=== PATIENT | female | born 1970 | race Caucasian/White ===

== ENCOUNTER 2019-11-18 18:53 | Inpatient (IN) | payer OTHER ==
[~2019-11-18] VITALS: Ht 154.9 cm; Wt 60.2 kg
[2019-11-18] MEDS ORDERED: SODIUM CHLORIDE FLUSH 10ML SYR IVF ONE (19:30)
[2019-11-18 19:37] LABS: INTERNATIONAL NORMALIZED RATIO 1.88 (0.93-1.1); PROTHROMBIN TIME 20.1 Seconds (9.6-11.5)
[2019-11-18 19:39] LABS: ALANINE AMINOTRANSFERASE 14 U/L (12-78); ALBUMIN 2.4 g/dL (3.4-5.0); ANION GAP 5 mmol/L (5-15); CALCIUM 7.9 mg/dL (8.5-10.1); CHLORIDE 99 mmol/L (98-107); MEAN CORPUSCULAR HEMOGLOBIN 38.1 pg (27.0-34.8); MEAN CORPUSCULAR HGB CONC 33.5 g/dL (32.4-35.8); MEAN PLATELET VOLUME 6.1 fL (7.4-10.4); PLATELET COUNT 209 x10^3/uL (130-400); RED BLOOD COUNT 1.82 x10^6/uL (3.82-5.3); RED CELL DISTRIBUTION WIDTH 18.4 % (9.6-15.2)
[2019-11-18 19:40] LABS: HEMOGRAM NOTE RECHECKED
[2019-11-18 19:41] LABS: ALKALINE PHOSPHATASE 74 U/L (45-117); BILIRUBIN,TOTAL 5.1 mg/dL (0.2-1.0)
[2019-11-18 19:45] LABS: SALICYLATE LEVEL < 1.7 mg/dL (2.8-20.0)
[2019-11-18] MEDS ORDERED: SODIUM CHLORIDE 0.9% 1,000ML IVBOLUS ONE ×2 (20:00→20:30)
[2019-11-18 20:02] LABS: MD MORPH REVIEW ONLY
[2019-11-18 20:03] LABS: ANISOCYTOSIS 1+; BASOPHILS # (AUTO) 0.01 x10^3/uL (0-0.1); BASOPHILS % (AUTO) 0 % (0-1); EOSINOPHILS # (AUTO) 0.11 x10^3/uL (0-0.4); EOSINOPHILS % (AUTO) 2 % (1-7); LYMPHOCYTES # (AUTO) 1.11 x10^3/uL (1-3.4); LYMPHOCYTES % (AUTO) 19 % (22-44); MONOCYTES # (AUTO) 0.54 x10^3/uL (0.2-0.8); MONOCYTES % (AUTO) 9 % (2-9); NEUTROPHILS # (AUTO) 4.07 x10^3/uL (1.8-6.8); NEUTROPHILS % (AUTO) 70 % (42-75)
[2019-11-18 20:05] LABS: ACANTHOCYTES 1+; POLYCHROMASIA 1+
[2019-11-18 20:06] LABS: <PLATELET ESTIMATE> ADEQUATE; <PLT MORPHOLOGY> NORMAL PLT MORPH; ECHINOCYTES 1+
[2019-11-18] MEDS ORDERED: PANTOPRAZOLE 80 MG in SODIUM CHLORIDE 0.9% 100 ML IV SCH (20:06)
[2019-11-18] MEDS ORDERED: PANTOPRAZOLE 80 MG in SODIUM CHLORIDE 0.9% 50 ML IVPB ONE (20:06)
[2019-11-18] MEDS ORDERED: SODIUM CHLORIDE FLUSH 10ML SYR IVF PRN (20:30)
[2019-11-18] MEDS ORDERED: OCTREOTIDE 100MCG/ML, 1ML (0.1MG/ML) ONE (20:47)
[2019-11-18] MEDS ORDERED: OCTREOTIDE 500 MCG in SODIUM CHLORIDE 0.9% 99 ML IV PRN (21:00)
[2019-11-18] MEDS ORDERED: PLEASE ENTER ALLERGIES MC SCH (21:00)
--- NOTE | 2019-11-18 21:15 | NUR ---
Report received and care assumed. Dr De Oliveira at bedside for eval. 2 IV's established. Per MD, no central line at this time. Would like to see what pt's VS are after blood transfusion. Pt states her BP is normally "low". Pt denies symptoms or needs at this time.
[2019-11-18] MEDS ORDERED: AZITHROMYCIN 500 MG in SODIUM CHLORIDE 0.9% 250 ML IVPB ONE (21:30)
[2019-11-18] MEDS ORDERED: CEFTRIAXONE PMX 1GM/50ML 50 ML IVPB ONE (21:30)
[2019-11-18] MEDS ORDERED: POTASSIUM CHLORIDE 20 MEQ, MAGNESIUM SULFATE 2 GM, THIAMINE 200 MG, MVI ADULT 10 ML, FO... IV SCH (21:34)
[2019-11-18 21:40] VITALS: BP 93/56
--- NOTE | 2019-11-18 21:40 | NUR ---
1 unit PRBC transfusing. Pt aware of s/s to notify RN. Pt on monitor equipment. Call light in reach.
[2019-11-18 21:54] VITALS: BP 97/64
--- NOTE | 2019-11-18 21:57 | NUR ---
PT HAS NO S/S OF REACTION. TOLERATING TRANSFUSION AT THIS TIME.
[2019-11-18] MEDS ORDERED: POTASSIUM CHLORIDE 20 MEQ TAB.ER.PRT PO ONE (22:00)
[2019-11-18] MEDS: CEFTRIAXONE PMX 1GM/50ML 50 ML IV SCH (22:00)
[2019-11-18] MEDS ORDERED: ONDANSETRON 2MG/ML, 2ML IVPush PRN (22:00)
[2019-11-18] MEDS ORDERED: MELATONIN 5 MG TABLET PO PRN (22:00)
[2019-11-18] MEDS: LACTULOSE 10 GM/15 ML UDC PO SCH (22:00)
[2019-11-18] MEDS ORDERED: methylPREDNISolone SOD SUCC 40 MG/ML IV SCH (22:00)
--- NOTE | 2019-11-18 22:11 | NUR ---
GI at bedside to eval for admission.
[2019-11-18 22:27] VITALS: BP 96/63
[2019-11-18] MEDS: PANTOPRAZOLE 80 MG in SODIUM CHLORIDE 0.9% 100 ML IV SCH (22:28)
--- NOTE | 2019-11-18 22:33 | NUR ---
PT TOLERATING BLOOD TRANSFUSION WELL. PO WATER GIVEN PER REQUEST--PT NOT NPO UNTIL MIDNIGHT. MINI CATH COLLECTED AND PT TOLERATED WELL. VSS. AWARE OF PT'S BP DURING BLOOD TRANSFUSION, STABLE AT THIS TIME. NO CENTRAL LINE REQUIRED AT THIS TIME.
[2019-11-18] MEDS ORDERED: POTASSIUM CHLORIDE 20 MEQ TAB.ER.PRT ONE (22:36)
[2019-11-18] MEDS ORDERED: CEFTRIAXONE PMX 1GM/50ML 50 ML ONE (22:36)
[2019-11-18 22:46] LABS: MICROSCOPIC NOT IND
[2019-11-18 22:59] VITALS: BP 92/58
--- NOTE | 2019-11-18 23:20 | NUR ---
Transfusion completed. IV antibiotics infusing--blood cultures x2 drawn prior. IV protonix and octreotide infusing via pump.
[2019-11-19 01:38] LABS: AMPHETAMINE SCREEN, URINE Negative (Negative); BARBITURATE SCREEN, URINE Negative (Negative); BENZODIAZEPINE SCREEN, URINE Negative (Negative); CANNABINOID SCREEN, URINE Positive (Negative); COCAINE SCREEN, URINE Negative (Negative); METHADONE SCREEN, URINE Negative (Negative); OPIATE SCREEN, URINE Negative (Negative)
[2019-11-19] MEDS: OCTREOTIDE 500 MCG in SODIUM CHLORIDE 0.9% 99 ML IV SCH ×2 (04:04→18:07)
[2019-11-19] MEDS: PANTOPRAZOLE 80 MG in SODIUM CHLORIDE 0.9% 100 ML IV SCH ×3 (04:04→22:26)
[2019-11-19 04:13] VITALS: BP 80/50
[2019-11-19 06:35] LABS: MEAN CORPUSCULAR HEMOGLOBIN 37.2 pg (27.0-34.8); MEAN CORPUSCULAR HGB CONC 33.6 g/dL (32.4-35.8); MEAN PLATELET VOLUME 6.1 fL (7.4-10.4); PLATELET COUNT 183 x10^3/uL (130-400); RED BLOOD COUNT 2.43 x10^6/uL (3.82-5.3); RED CELL DISTRIBUTION WIDTH 22.5 % (9.6-15.2)
[2019-11-19 06:38] LABS: CHLORIDE 103 mmol/L (98-107)
[2019-11-19 06:52] LABS: ALANINE AMINOTRANSFERASE 13 U/L (12-78); ALBUMIN 2.1 g/dL (3.4-5.0); ALKALINE PHOSPHATASE 69 U/L (45-117); ANION GAP 8 mmol/L (5-15); BILIRUBIN,TOTAL 6.3 mg/dL (0.2-1.0); CALCIUM 7.9 mg/dL (8.5-10.1); CREATININE 0.85 mg/dL (0.55-1.02); TOTAL PROTEIN 5.8 g/dL (6.4-8.2)
[2019-11-19 07:04] LABS: BASOPHILS # (AUTO) 0.02 x10^3/uL (0-0.1); BASOPHILS % (AUTO) 0 % (0-1); EOSINOPHILS # (AUTO) 0.17 x10^3/uL (0-0.4); EOSINOPHILS % (AUTO) 2 % (1-7); LYMPHOCYTES # (AUTO) 0.76 x10^3/uL (1-3.4); LYMPHOCYTES % (AUTO) 9 % (22-44); MD SCAN; MONOCYTES # (AUTO) 0.61 x10^3/uL (0.2-0.8); MONOCYTES % (AUTO) 7 % (2-9); NEUTROPHILS # (AUTO) 6.69 x10^3/uL (1.8-6.8); NEUTROPHILS % (AUTO) 81 % (42-75)
[2019-11-19] MEDS ORDERED: PANTOPRAZOLE 40 MG IV IVPush SCH (09:00)
[2019-11-19] MEDS: METRONIDAZOLE PMX 500MG/100ML 100 ML IV SCH ×3 (09:10→23:26)
[2019-11-19] MEDS: LACTULOSE 10 GM/15 ML UDC PO SCH ×2 (09:10→21:58)
[2019-11-19] MEDS ORDERED: KETAMINE 10 MG/ML, 20ML ONE (13:00)
[2019-11-19] MEDS ORDERED: PROPOFOL 50 ML ONE (13:33)
[2019-11-19] MEDS ORDERED: LIDOCAINE-MPF 2% ,5ML ONE (13:48)
[2019-11-19] MEDS ORDERED: ALBUMIN HUMAN 25% 100 ML IV ONE (15:30)
[2019-11-19] MEDS ORDERED: OXYcodone IR 5MG TABLET PO PRN (15:30)
[2019-11-19] MEDS: POTASSIUM CHLORIDE 20 MEQ TAB.ER.PRT PO SCH (16:06)
[2019-11-19] MEDS ORDERED: FUROSEMIDE 20 MG/2 ML ONE (17:09)
[2019-11-19] MEDS: CEFTRIAXONE PMX 1GM/50ML 50 ML IV SCH (21:59)
[2019-11-19] MEDS: THIAMINE 100 MG in SODIUM CHLORIDE 0.9% 50 ML IV SCH (22:45)
[2019-11-20] MEDS: POTASSIUM CHLORIDE 20 MEQ TAB.ER.PRT PO SCH ×2 (03:42→15:18)
[2019-11-20 04:29] LABS: MEAN CORPUSCULAR HEMOGLOBIN 36.6 pg (27.0-34.8); MEAN CORPUSCULAR HGB CONC 32.6 g/dL (32.4-35.8); MEAN PLATELET VOLUME 5.9 fL (7.4-10.4); PLATELET COUNT 208 x10^3/uL (130-400); RED CELL DISTRIBUTION WIDTH 22.7 % (9.6-15.2)
[2019-11-20 04:34] LABS: ALANINE AMINOTRANSFERASE 17 U/L (12-78); ALBUMIN 2.6 g/dL (3.4-5.0); ANION GAP 6 mmol/L (5-15); CALCIUM 8.1 mg/dL (8.5-10.1); CHLORIDE 106 mmol/L (98-107); CREATININE 0.84 mg/dL (0.55-1.02)
[2019-11-20 04:40] LABS: MICROSCOPIC INDICATED
[2019-11-20 04:44] LABS: ALKALINE PHOSPHATASE 70 U/L (45-117); BILIRUBIN,TOTAL 4.6 mg/dL (0.2-1.0); TOTAL PROTEIN 6.2 g/dL (6.4-8.2)
[2019-11-20 04:49] LABS: BASOPHILS # (AUTO) 0.02 x10^3/uL (0-0.1); BASOPHILS % (AUTO) 0 % (0-1); EOSINOPHILS # (AUTO) 0.26 x10^3/uL (0-0.4); EOSINOPHILS % (AUTO) 4 % (1-7); LYMPHOCYTES # (AUTO) 0.81 x10^3/uL (1-3.4); LYMPHOCYTES % (AUTO) 14 % (22-44); MD SCAN; MONOCYTES # (AUTO) 0.44 x10^3/uL (0.2-0.8); MONOCYTES % (AUTO) 7 % (2-9); NEUTROPHILS # (AUTO) 4.41 x10^3/uL (1.8-6.8); NEUTROPHILS % (AUTO) 74 % (42-75)
[2019-11-20] MEDS: OCTREOTIDE 500 MCG in SODIUM CHLORIDE 0.9% 99 ML IV SCH (05:31)
[2019-11-20] MEDS: METRONIDAZOLE PMX 500MG/100ML 100 ML IV SCH ×3 (07:43→22:57)
[2019-11-20] MEDS: PANTOPRAZOLE 80 MG in SODIUM CHLORIDE 0.9% 100 ML IV SCH (07:45)
[2019-11-20] MEDS: SPIRONOLACTONE 25 MG TABLET PO SCH (08:38)
[2019-11-20] MEDS: FOLIC ACID 1 MG TABLET PO SCH (08:38)
[2019-11-20] MEDS: FUROSEMIDE 20 MG TABLET PO SCH (08:38)
[2019-11-20] MEDS: MULTIVITAMINS/MINERALS TABLET PO SCH (08:38)
[2019-11-20] MEDS: LACTULOSE 10 GM/15 ML UDC PO SCH ×2 (08:39→21:36)
[2019-11-20] MEDS ORDERED: FUROSEMIDE 20 MG/2 ML IV SCH (09:00)
[2019-11-20] MEDS: THIAMINE 100 MG in SODIUM CHLORIDE 0.9% 50 ML IV SCH ×2 (11:27→21:36)
[2019-11-20] MEDS: PANTOPRAZOLE 40 MG IV IVPush SCH ×2 (11:30→23:02)
[2019-11-20 12:33] LABS: OCCULT BLOOD NEGATIVE (NEGATIVE)
[2019-11-20 19:01] VITALS: BP 101/63
[2019-11-20] MEDS: CEFTRIAXONE PMX 1GM/50ML 50 ML IV SCH (21:36)
[2019-11-21] MEDS: POTASSIUM CHLORIDE 20 MEQ TAB.ER.PRT PO SCH (03:21)
[2019-11-21 04:45] VITALS: BP 106/65
[2019-11-21 05:10] LABS: MEAN CORPUSCULAR HEMOGLOBIN 37.1 pg (27.0-34.8); MEAN CORPUSCULAR HGB CONC 33.3 g/dL (32.4-35.8); PLATELET COUNT 206 x10^3/uL (130-400); RED BLOOD COUNT 2.54 x10^6/uL (3.82-5.3); RED CELL DISTRIBUTION WIDTH 22.9 % (9.6-15.2)
[2019-11-21 05:12] LABS: ALANINE AMINOTRANSFERASE 19 U/L (12-78); ALBUMIN 2.6 g/dL (3.4-5.0); ANION GAP 5 mmol/L (5-15); CALCIUM 8.3 mg/dL (8.5-10.1); CHLORIDE 108 mmol/L (98-107); CREATININE 0.76 mg/dL (0.55-1.02)
[2019-11-21 05:14] LABS: ALKALINE PHOSPHATASE 79 U/L (45-117); TOTAL PROTEIN 6.2 g/dL (6.4-8.2)
[2019-11-21 06:06] LABS: BASOPHILS # (AUTO) 0.06 x10^3/uL (0-0.1); BASOPHILS % (AUTO) 1 % (0-1); EOSINOPHILS # (AUTO) 0.21 x10^3/uL (0-0.4); EOSINOPHILS % (AUTO) 4 % (1-7); LYMPHOCYTES # (AUTO) 0.83 x10^3/uL (1-3.4); LYMPHOCYTES % (AUTO) 15 % (22-44); MD SCAN; MONOCYTES # (AUTO) 0.37 x10^3/uL (0.2-0.8); MONOCYTES % (AUTO) 7 % (2-9); NEUTROPHILS # (AUTO) 4.27 x10^3/uL (1.8-6.8); NEUTROPHILS % (AUTO) 74 % (42-75)
[2019-11-21] MEDS: METRONIDAZOLE PMX 500MG/100ML 100 ML IV SCH ×2 (06:29→15:30)
[2019-11-21] MEDS: FUROSEMIDE 20 MG TABLET PO SCH (08:22)
[2019-11-21] MEDS: SPIRONOLACTONE 25 MG TABLET PO SCH (08:22)
[2019-11-21] MEDS: FOLIC ACID 1 MG TABLET PO SCH (08:22)
[2019-11-21] MEDS: MULTIVITAMINS/MINERALS TABLET PO SCH (08:22)
[2019-11-21] MEDS: LACTULOSE 10 GM/15 ML UDC PO SCH (08:22)
[2019-11-21 08:38] VITALS: BP 108/63
[2019-11-21] MEDS: THIAMINE 100 MG in SODIUM CHLORIDE 0.9% 50 ML IV SCH (09:32)
[2019-11-21] MEDS: PANTOPRAZOLE 40 MG IV IVPush SCH (11:09)
[2019-11-21 13:55] VITALS: BP 104/64
[2019-11-21] MEDS ORDERED: CEFD300C37 PO (14:16)
[2019-11-21] MEDS ORDERED: FURO20TA3 PO (14:16)
[2019-11-21] MEDS ORDERED: SPIR25TA PO (14:16)
[2019-11-21] MEDS ORDERED: PANT40TA6 PO (14:16)
[2019-11-21] MEDS ORDERED: FOLI-17 PO (14:16)
[2019-11-21] MEDS ORDERED: METR-90 PO (14:16)
[2019-11-21] MEDS ORDERED: MULT-484 PO (14:16)
[2019-11-21] MEDS ORDERED: FUROSEMIDE 40 MG/4 ML IV ONE (16:00)
== END 2019-11-21 18:52 | disposition home or self-care (01) | DRG 441 ==
LOC: ED 19:29 → EDIP 20:22 → CCU 23:42 → 4WST 11-20 12:42
PROVIDERS: ADMIT Family Medicine; ATTEND Hospitalist
PROC: 30233N1 Transfusion of Nonautologous Red Blood Cells into Peripheral Vein, Percutaneous Approach (ICD-10-PCS; 2019-11-18)
PROC: 0T9B70Z Drainage of Bladder with Drainage Device, Via Natural or Artificial Opening (ICD-10-PCS; 2019-11-18)
PROC: 06L38CZ Occlusion of Esophageal Vein with Extraluminal Device, Via Natural or Artificial Opening Endoscopic (ICD-10-PCS; principal; 2019-11-19 13:00)
DX: K72.00 Acute and subacute hepatic failure without coma (principal); R57.1 Hypovolemic shock; J69.0 Pneumonitis due to inhalation of food and vomit; I85.11 Secondary esophageal varices with bleeding; R57.8 Other shock; E87.1 Hypo-osmolality and hyponatremia; J90 Pleural effusion, not elsewhere classified; K76.6 Portal hypertension; D68.9 Coagulation defect, unspecified; K70.31 Alcoholic cirrhosis of liver with ascites; K70.11 Alcoholic hepatitis with ascites; E77.8 Other disorders of glycoprotein metabolism; I11.0 Hypertensive heart disease with heart failure; I50.9 Heart failure, unspecified; K31.7 Polyp of stomach and duodenum; K31.89 Other diseases of stomach and duodenum; E83.51 Hypocalcemia; E87.6 Hypokalemia; D75.89 Other specified diseases of blood and blood-forming organs; D50.0 Iron deficiency anemia secondary to blood loss (chronic); Z20.828 Contact with and (suspected) exposure to other viral communicable diseases
CPT/HCPCS: 36415; 84145; J3490; J7042; 36430; 71045; 76700; 80053; 80074; 80307; 81001; 81003; 82140; 82272; 82607; 82728; 83540; 83550; 83605; 83690; 83735; 83880; 84100; 84425; 84443; 84466; 85014; 85018; 85025; 85610; 85730; 86850; 86900; 86923; 87040; 87081; 87086; 87635; 93005; 96365; 99291; G0378; J0696; J1940; J2354; J2704; J3411; J3475; J3480; P9047; C9113; J7030; P9016

== ENCOUNTER 2019-12-02 13:20 | Emergency (ER) | payer OTHER ==
[~2019-12-02] VITALS: Ht 165.1 cm; Wt 64.4 kg
[~2019-12-02 13:20] MED LIST: CEFD300C37 PO; FOLI-17 PO; FURO20TA3 PO; METR-90 PO; MULT-484 PO; PANT40TA5 PO; SPIR25TA PO
--- NOTE | 2019-12-02 13:44 | NUR ---
FIRST CONTACT WITH PT. PT NEEDS PARACENTESIS. PT ATTEMPTED TO MAKE AN JERMAINE BUT PT HAS ABD PAIN AND CAME TO ER TODAY. PT REPORTS HER GI DR. Silveira ADVICED TO COME IN FOR PARACENTESIS. PT C/O SOB AND ABD PAIN R/T ASCITIS. PT DENIES N/V/D. PT'S AOX4. RESPS EVEN AND UNLABORED. BP/SPO2 MONITORS IN PLACE. CALL LIGHT WITHIN REACH.
--- NOTE | 2019-12-02 13:45 | NUR ---
WARM BLANKET GIVEN PER REQUEST.
[2019-12-02] MEDS ORDERED: LIDOCAINE 1%, 10ML ONE (14:09)
[2019-12-02 14:16] VITALS: BP 119/79
--- NOTE | 2019-12-02 14:16 | NUR ---
PIV EST ON R AC WITH NO COMPLICATIONS. PT TOLERATED WELL.
--- NOTE | 2019-12-02 14:50 | NUR ---
PT IN PARA AT THIS TIME.
--- NOTE | 2019-12-02 15:15 | NUR ---
EDMD AT BEDSIDE AT THIS TIME.
--- NOTE | 2019-12-02 15:42 | NUR ---
pt wheeled to br.
--- NOTE | 2019-12-02 16:01 | NUR ---
PT BACK TO ROOM. AWAITING DC PAPERS.
--- NOTE | 2019-12-02 16:11 | NUR ---
Patient given discharge instructions and they have confirmed that they understand the instructions.
== END 2019-12-02 16:12 | disposition home or self-care (01) ==
LOC: ED 14:43
DX: K70.31 Alcoholic cirrhosis of liver with ascites (principal); R06.02 Shortness of breath; R00.0 Tachycardia, unspecified; I10 Essential (primary) hypertension
CPT/HCPCS: 49083; 99285; J3490